=== PATIENT | female | born 1970 | race African-American/Black ===

== ENCOUNTER 2023-01-25 08:57 | Emergency (ER) | payer SELFPAY ==
[~2023-01-25] VITALS: Ht 167.6 cm; Wt 82.5 kg
[2023-01-25] VITALS (12 sets, daily range): BP systolic 120–173; BP diastolic 90–103
[2023-01-25 10:36] LABS: BASO% 0.4 % (0-3); EOS% 0.8 % (0-8); HEMATOCRIT 43.5 % (37.0-47.0); HEMOGLOBIN 13.9 g/dl (12.0-16.0); IMMATURE GRANULOCYTES 0.2 % (0.0-5.0); LYMPH% 38.9 % (15-41); MEAN CELL VOLUME 84.6 fL CALC (80.0-100.0); MONO% 10.1 % (2-13); NEUT# 2.36 thou/uL (2.00-7.15); NEUT% 49.6 % (42-76); RED BLOOD COUNT 5.14 mill/uL (4.20-5.60); RED CELL DISTRI WIDTH 13.3 % (11.5-15.5)
[2023-01-25 10:45] LABS: ALKALINE PHOSPHATASE 76 u/l (38-126); ANION GAP 17 (6-22 (CALC)); BILIRUBIN, TOTAL 0.9 mg/dL (0.02-1.3); BUN 13 mg/dL (7-17); BUN/CREATININE RATIO 12 (12-20 (CALC)); CARBON DIOXIDE 26 mmol/l (22-30); CHLORIDE 103 mmol/l (95-108); GFR FOR AFR.AMER. > 60 ML/MIN (>=60 (CALC)); GFR OTHER RACES 58 ML/MIN (>=60 (CALC)); POTASSIUM 4.4 mmol/l (3.5-5.1); SGOT/AST 43 u/l (14-36); SODIUM 142 mmol/l (137-146); TOTAL PROTEIN 9.7 g/dL (6.3-8.2)
[2023-01-25] MEDS ORDERED: AMOXICILLIN500 M2 PO (11:37)
[2023-01-26] MEDS ORDERED: PROMETHAZINE HY25 M1 PO (00:01)
== END 2023-01-25 11:51 | disposition home or self-care (01) | DRG 206 ==
LOC: ED 08:57
PROVIDERS: Emergency Medicine
DX: J98.11 Atelectasis (principal); R74.8 Abnormal levels of other serum enzymes; E83.52 Hypercalcemia; Z20.822 Contact with and (suspected) exposure to COVID-19

== ENCOUNTER 2023-01-25 23:27 | Emergency (ER) | payer SELFPAY ==
[~2023-01-25] VITALS: Ht 167.6 cm; Wt 95.2 kg
[~2023-01-25 23:27] MED LIST: AMOXICILLIN500 M2 PO
[2023-01-25 23:34] VITALS: BP 134/94
[2023-01-25 23:45] VITALS: BP 129/93
[2023-01-26] VITALS: BP 121/86
[2023-01-26] MEDS ORDERED: PROMETHAZINE HY25 M1 PO (00:01)
[2023-01-26 00:15] VITALS: BP 142/95
== END 2023-01-26 00:24 | disposition home or self-care (01) | DRG 887 ==
LOC: ED 23:27
DX: G47.00 Insomnia, unspecified (principal); F41.9 Anxiety disorder, unspecified